=== PATIENT | male | born 1995 | race Two or more races ===

== ENCOUNTER 2019-11-16 20:34 | Emergency (ER) | payer OTHER ==
[2019-11-16 21:01] VITALS: BP 140/75
--- NOTE | 2019-11-16 21:27 | ER Document Report ---
ED Medical Screen (RME) - General Chief Complaint: Headache Stated Complaint: HEADACHE/RASH/EAR PAIN Notes: Patient is a 24-year-old -Citizen Of [place] male with a past medical history of infrequent migraine headaches with prior cervical injury with cervical herniations that primarily affected the left upper extremity with radiations who presents to the emergency department the chief complaint of increased frequency of headaches recently. He states that they are primarily involving the right frontal area. Denies any radiation of pain. Denies any specific provocative or palliative factors. He states the headaches are transient in nature and come multiple times per week. He states he just had one today that is starting to resolve on its own here in triage. He states when he gets the headache it affects the vision on the right side. He states he is also been experiencing some neck pain. He was concerned for meningitis so he came for evaluation. He states that while he is here he would also like to be tested for STDs. He is asymptomatic but states he just wants to check. He denies any fever chills or night sweats. Denies any recent travel or known sick contacts. I have treated and performed a rapid initial assessment of this patient. A comprehensive ED assessment and evaluation of the patient, analysis of test results and completion of medical decision making process will be conducted by additional ED providers. PHYSICAL EXAMINATION: GENERAL: Well-appearing, well-nourished and in no acute distress. A&Ox4. Answers questions appropriately. Physical Exam - Vital signs Vitals: Temp Pulse Resp BP Pulse Ox 98.0 F 70 16 140/75 H 97 11/16/19 20:59 11/16/19 20:59 11/16/19 20:59 11/16/19 20:59 11/16/19 20:59 Course - Vital Signs Vital signs: Temp Pulse Resp BP Pulse Ox 98.0 F 70 16 140/75 H 97 11/16/19 20:59 11/16/19 20:59 11/16/19 20:59 11/16/19 20:59 11/16/19 20:59
--- NOTE | 2019-11-16 22:13 | RADIOLOGY REPORT (SQ) ---
EXAM DESCRIPTION: CT HEAD WITHOUT IV CONTRAST COMPLETED DATE/TME: 11/16/2019 21:24 CLINICAL HISTORY: 24 years, Male, headache, stiff neck, right eye blurry vision x2 weeks. COMPARISON: None Available. Technique: Contiguous axial images of the brain were obtained without the administration of intravenous contrast. Coronal and sagittal reformats obtained and reviewed. This exam was performed according to our departmental dose-optimization program which includes use of Automated Exposure Control, adjustment of the mA and/or kV according to patient size and/or use of iterative reconstruction technique. Findings: Brain: No hemorrhage. No territorial infarct. No mass effect. No herniation. Ventricles: Within normal limits for patient's age. Bones: No acute osseous abnormality. Paranasal sinuses: Unremarkable. Mastoid air cells: Unremarkable. Soft tissues: No acute abnormality. IMPRESSION: No acute intracranial abnormalities.
[2019-11-16 23:30] LABS: ABSOLUTE LYMPHOCYTES (AUTO) 1.7 10^3/uL (0.5-4.7); ABSOLUTE MONOCYTES (AUTO) 0.3 10^3/uL (0.1-1.4); ABSOLUTE NEUT (AUTO) 9.9 10^3/uL (1.7-8.2); BASOPHILS % (AUTO) 0.2 % (0-2); EOSINOPHILS % (AUTO) 0.1 % (0-6); HEMATOCRIT 48.1 % (37.9-51.0); HEMOGLOBIN 16.6 g/dL (13.5-17.0); LYMPHOCYTES % (AUTO) 14.5 % (13-45); MEAN CORPUSCULAR HGB CONC 34.4 g/dL (32.0-36.0); MEAN CORPUSCULAR VOLUME 93 fl (80-97); MONOCYTES % (AUTO) 2.8 % (3-13); PLATELET COUNT 195 10^3/uL (150-450); RED BLOOD COUNT 5.19 10^6/uL (4.35-5.55); RED CELL DISTRIBUTION WIDTH 11.9 % (11.5-14.0); SEGMENTED NEUTROPHILS % (AUTO) 82.4 % (42-78); TOTAL CELLS COUNTED % (AUTO) 100 %
[2019-11-16 23:45] LABS: ALKALINE PHOSPHATASE 52 U/L (38-126); ANION GAP 9 (5-19); ASPARTATE AMINO TRANSFERASE 34 U/L (17-59); BILIRUBIN,TOTAL 0.7 mg/dL (0.2-1.3); BLOOD UREA NITROGEN 11 mg/dL (7-20); CALCIUM 10.2 mg/dL (8.4-10.2); CARBON DIOXIDE 28 mmol/L (22-30); CHLORIDE 101 mmol/L (98-107); GLUCOSE 105 mg/dL (75-110); POTASSIUM 4.7 mmol/L (3.6-5.0); TOTAL PROTEIN 8.6 g/dL (6.3-8.2)
[2019-11-17 01:13] LABS: CHLAM PCR NOT DETECTED (NOT DETECT)
== END 2019-11-17 07:08 | disposition left against medical advice (07) ==
LOC: ER 20:34
DX: R51 Headache (principal); H53.8 Other visual disturbances; M54.2 Cervicalgia; Z86.69 Personal history of other diseases of the nervous system and sense organs; Z87.828 Personal history of other (healed) physical injury and trauma
CPT/HCPCS: 36415; 70450; 80053; 85025; 87491; 87591; 99281